=== PATIENT | female | born 1995 | race Hispanic/Latino ===

== ENCOUNTER 2019-02-04 19:57 | Emergency (ER) | payer OTHER ==
[2019-02-04] MEDS ORDERED: Sodium Chloride 0.9% 1,000 ML IV STA (21:04)
--- NOTE | 2019-02-04 21:08 | ED PDOC ---
HPI: Abdomen Time Seen by Provider: 02/04/19 20:54 Chief Complaint (Nursing): Back Pain Chief Complaint (Provider): abdominal pain History Per: Patient History/Exam Limitations: no limitations Onset/Duration Of Symptoms: Hrs (5) Current Symptoms Are (Timing): Still Present Location Of Pain/Discomfort: LUQ, LLQ, Other (left flank) Quality Of Discomfort: Sharp Associated Symptoms: Nausea, Vomiting Last Bowel Movement: Today Additional Complaint(s): 23 y/o female presents for evaluation of left-sided abdominal pain x 5 hours. Associated nausea, vomiting. Patient was evaluated at [facility] for same and sent to ED for further evaluation. Denies fever, cough, congestion, chest pain, shortness of breath, palpitations, changes in bowel movements, urinary symptoms, recent travel, sick contacts. No medications taken for relief thus far Past Medical History Reviewed: Historical Data, Nursing Documentation, Vital Signs Vital Signs: Last Vital Signs Temp 98.2 F 02/04/19 20:04 Pulse 67 02/04/19 20:04 Resp 18 02/04/19 20:04 BP 132/91 H 02/04/19 20:04 Pulse Ox 100 02/04/19 20:04 Primary Care Provider: FAMILY PROVIDER,NO - Medical History PMH: No Chronic Diseases - Surgical History Surgical History: No Surg Hx - Family History Family History: States: No Known Family Hx - Home Medications Home Medications: Ambulatory Orders Medication Instructions Recorded Ciprofloxacin HCl [Cipro] 500 mg PO BID #13 tab 02/05/19 Naproxen [Naprosyn] 500 mg PO Q12 PRN #20 tablet 02/05/19 Ondansetron ODT [Zofran ODT] 4 mg PO Q8 PRN #10 odt 02/05/19 Tamsulosin [Flomax] 0.4 mg PO DAILY #10 cap 02/05/19 - Allergies Allergies/Adverse Reactions: Allergies Allergy/AdvReac Type Severity Reaction Status Date / Time Penicillins Allergy RASH Verified 02/04/19 20:04 Review of Systems ROS Statement: Except As Marked, All Systems Reviewed And Found Negative Gastrointestinal: Positive for: Nausea, Vomiting, Abdominal Pain Musculoskeletal: Positive for: Back Pain Physical Exam - Reviewed Nursing Documentation Reviewed: Yes Vital Signs Reviewed: Yes - Physical Exam Appears: Positive for: Well, Non-toxic, Uncomfortable Head Exam: Positive for: ATRAUMATIC, NORMAL INSPECTION, NORMOCEPHALIC Skin: Positive for: Normal Color Eye Exam: Positive for: Normal appearance ENT: Positive for: Normal ENT Inspection Cardiovascular/Chest: Positive for: Regular Rate, Rhythm Respiratory: Positive for: Normal Breath Sounds Gastrointestinal/Abdominal: Positive for: Bowel Sounds, Soft, Tenderness (epigastric, LUQ, LLQ, left flank) Back: Positive for: L CVA Tenderness. Negative for: R CVA Tenderness Extremity: Positive for: Normal ROM Neurological/Psych: Positive for: Awake, Alert, Oriented (x3) - Laboratory Results Result Diagrams: 02/04/19 21:34 02/04/19 21:34 - ECG O2 Sat by Pulse Oximetry: 100 - Progress ED Course And Treament: EXAM: CT Abdomen and Pelvis without IV contrast CLINICAL HISTORY: LEFT FLANK PAIN, VOMITING TECHNIQUE: Axial computed tomography images of the abdomen and pelvis without intravenous contrast. 195.64 mGy-cm CONTRAST: Without COMPARISON: None provided. FINDINGS: LUNG BASES: The lung bases appear clear. No pleural effusions are seen. LIVER: Unremarkable. GALLBLADDER AND BILE DUCTS: The gallbladder appears within normal limits. No radioopaque gallstones are se en. No biliary ductal dilatation is evident. PANCREAS: Unremarkable. SPLEEN: Unremarkable. ADRENAL GLANDS: Unremarkable. KIDNEYS, URETERS, AND BLADDER: The kidneys appear within normal limits. There is mild left hydronephrosis present. A 2.5 mm obstructing proximal left ureteric calculus is identified just distal to the left UPJ. Additionally, there is apparent subtle left perinephric haziness suspicious for associated left pyelonephritis. The urinary bladder appears normal in size and configuration. Very subtle perivesical haziness is noted thought compatible with acute cystitis. STOMACH AND BOWEL: Unremarkable appearance of the stomach and bowel. No evidence of bowel obstruc tion. No evidence suggesting enteritis or colitis. APPENDIX: No evidence of acute appendicitis on CT examination. PERITONEUM: No free fluid. No free air. LYMPH NODES: No lymphadenopathy is evident. REPRODUCTIVE: Unremarkable as visualized. VASCULATURE: No evidence of abdominal aortic aneurysm. BONES: No aggressive appearing osseous lesion. No acute osseous pathology evident. IMPRESSION: 1. A 2.5 mm obstructing calculus is seen in the proximal left ureter. There is associated mild left hydronephrosis. 2. Subtle left perinephric haziness thought compatible with left pyelonephritis. 3. Evidence of acute cystitis Patient afebrile, normal WBC, u/a without WBC or leuks. Patient denies urinary symptoms. States she is feeling better on re-eval. [place] PO Patient educated on findings, discharged with rx Cipro, Flomax, Zofran, Naproxen STrainer given with instructions on use Advised follow up Urology within 2-3 days. Increase fluid intake Return precautions given Disposition - Clinical Impression Clinical Impression: Kidney stone on left side - Patient ED Disposition Is Patient to be Admitted: No Counseled Patient/Family Regarding: Studies Performed, Diagnosis, Need For Followup, Rx Given - Disposition Referrals: Ronnie Bautista Jr., MD [Staff Provider] - Disposition: Routine/Home Disposition Time: 00:51 Condition: IMPROVED Prescriptions: Ciprofloxacin HCl [Cipro] 500 mg PO BID #13 tab Naproxen [Naprosyn] 500 mg PO Q12 PRN #20 tablet PRN Reason: Pain, Moderate (4-7) Ondansetron ODT [Zofran ODT] 4 mg PO Q8 PRN #10 odt PRN Reason: Nausea/Vomiting Tamsulosin [Flomax] 0.4 mg PO DAILY #10 cap Instructions: Kidney Stones in Adults, Renal Colic Forms: [place]ISS[employer] (Japanese)
[2019-02-04 21:41] LABS: BASO % 0.7 % (0.0-2.0); EOS % 0.3 % (0.0-4.0); HEMOGLOBIN 13.1 g/dL (12.0-16.0); LYMPH # 0.9 K/uL (1.0-4.3); LYMPH % 12.7 % (20.0-40.0); MEAN CELL VOLUME 93.6 fl (81.0-99.0); MEAN CORPUSCULAR HEMOGLOBIN 31.6 pg (27.0-31.0); MEAN CORPUSCULAR HGB CONC 33.8 g/dL (33.0-37.0); MEAN PLATELET VOLUME 10.5 fl (7.2-11.7); MONO # 0.4 K/uL (0.0-0.8); MONO % 5.4 % (0.0-10.0); NEUT % 80.9 % (50.0-75.0); NRBC % 0.1 % (0.0-0.0); RBC 4.15 Mil/uL (3.80-5.20); RED CELL DISTRIBUTION WIDTH 13.5 % (11.5-14.5); WHITE BLOOD COUNT 7.5 K/uL (4.8-10.8)
[2019-02-04 21:50] LABS: ALB/GLOB RATIO 1.9 (1.0-2.1); ALBUMIN 4.6 g/dL (3.5-5.0); ALT/SGPT 23 U/L (9-52); AST/SGOT 25 U/L (14-36); BLOOD UREA NITROGEN 9 mg/dl (7-17); CALCIUM 9.3 mg/dL (8.4-10.2); GFR NON-AFRICAN AMERICAN > 60; LIPASE 67 U/L (23-300)
[2019-02-04 22:18] LABS: SQUAMOUS EPITHIAL 4 /hpf (0-5); URINE BACTERIA RARE (<OCC); URINE BILIRUBIN NEGATIVE (NEGATIVE); URINE BLOOD LARGE (NEGATIVE); URINE CALCIUM OXALATE CRYSTALS FEW /hpf (<OCC); URINE CLARITY SLIGHTY-CLOUDY (Clear); URINE COLOR YELLOW (YELLOW); URINE GLUCOSE (UA) NEG (NEGATIVE); URINE LEUKOCYTE ESTERASE NEG Leu/uL (Negative); URINE PROTEIN 30 mg/dL (NEGATIVE); URINE UROBILINOGEN 0.2-1.0 mg/dL (0.2-1.0)
[2019-02-05 01:33] VITALS: BP 104/75; PULSE 75; RESP 15; TEMP 98.3; O2SAT 99
--- NOTE | 2019-02-05 11:01 | CT ---
Date of service: 02/04/2019 PROCEDURE: CT abdomen and pelvis HISTORY: Left flank pain; vomiting COMPARISON: No prior study available comparison TECHNIQUE: Contiguous axial images of the abdomen and pelvis performed without oral or intravenous contrast material. Additional 2D sagittal and coronal reformats generated. Radiation dose: Total exam DLP = 195.64 mGy-cm. This CT exam was performed using one or more of the following dose reduction techniques: Automated exposure control, adjustment of the mA and/or kV according to patient size, and/or use of iterative reconstruction technique. FINDINGS: LOWER THORAX: Heart size is within range of normal. No significant pericardial effusion. There is a small hiatal hernia. No evidence of effusion or basilar pneumothorax.. Some minimal linear scarring seen in both lung bases including the lingular and middle lobe regions. LIVER: Liver exhibits normal size and attenuation pattern without obvious masses collections or calcifications. GALLBLADDER AND BILE DUCTS: Gallbladder is physiologically distended. PANCREAS: No pancreatic masses collections calcifications or significant ductal dilatation. SPLEEN: Unremarkable. No splenomegaly. ADRENALS: There are no adrenal lesions seen. KIDNEYS AND URETERS: There is an approximately 2.9 mm calculus within the proximal left ureter with mild left-sided hydronephrosis... Mild vague hazy appearance of the left-sided perinephric fat. No additional calculi. No rim evidence of right-sided hydronephrosis. BLADDER: The urinary bladder is incompletely distended with slight thick-walled appearance. Correlation with urinalysis recommended to exclude cystitis. REPRODUCTIVE: Unremarkable. APPENDIX: The appendix measures up to approximately 5.3 mm. Some minimal stranding seen in the periappendiceal fat nonspecific. Clinical correlation recommended. BOWEL: Evaluation of the bowel is somewhat limited due to the lack of oral contrast material. The stomach is partially distended with food debris liquid and air. Visualized loops of small bowel exhibit normal contour and caliber. No evidence of acute mechanical small bowel obstruction. There is a large amount of stool seen throughout the colon consistent with fecal retention/constipation. PERITONEUM: Unremarkable. No fluid collection. No free air. Small fat containing umbilical hernia. LYMPH NODES: Unremarkable. No enlarged lymph nodes. VASCULATURE: Unremarkable. No aortic aneurysm. No aortic atherosclerotic calcification or mural plaque present. BONES: No fracture or destructive lesion. OTHER FINDINGS: None. IMPRESSION: There is an approximately 2.9 mm calculus proximal left UE with mild left-sided hydronephrosis. Findings consistent with constipation. The appendix measures up to 5.3 mm with some vague stranding in the periappendiceal fat nonspecific. Clinical correlation recommended.
== END 2019-02-05 01:32 | disposition home or self-care (01) ==
LOC: H.ER 19:57
DX: N20.0 Calculus of kidney (principal); Z88.0 Allergy status to penicillin
CPT/HCPCS: 74176; 80053; 81003; 81025; 83690; 85025; 87040; 87086; 96374; 96375; 99282; J1885; J2405; J7030